=== PATIENT | female | born 1935 | race Caucasian/White ===

== ENCOUNTER 2016-12-15 11:48 | Day surgery (SDC) | payer MEDICARE ==
[2016-12-14 11:30] VITALS: BMI 24.7
[2016-12-15] MEDS ORDERED: ceFAZolin IV 1 gm in Dextrose 1 GM/50 ML BAG IVPB ONE (12:48)
[2016-12-15] MEDS ORDERED: Lidocaine 2% w Epi 1:100,000 Inj IJ ONE (12:48)
--- NOTE | 2016-12-15 12:51 | CP.SDSHP ---
Same Day Surgery H & P - History Proposed Procedure: left shoulder arthroscopic rotator cuff repair, labral repair Pre-Op Diagnosis: Left shoulder rotator cuff tear, labral tear, post herpetic neuralgia - Previous Medical/Surgical History Comments: medical clearance on chart. [employer] patient report reviewed, tramadol rx October 2016. Patient counseled on the risks of addiction, physical or psychological dependence, and overdose associated with opioid drugs and the danger of taking opioid drugs with alcohol and other central nervous system depressants, and cautioned patient on storage and disposal. Previous Surgical History: right shoulder surgery - Allergies Allergies: Allergies aspirin Allergy (Intermediate, Verified 12/14/16 11:42) NAUSEA - Physical Exam General Appearance: in painful distress Vital Signs: Vital Signs 12/15/16 12:33 Pulse Rate 96 H Mental Status: Alert & Oriented x3 - {Optional Preform as Required} Ortho: Other (LUE: +ROM fingers, sensation intact, +radial pulse) - Impression Impression: 81F with left shoulder rotator cuff tear for arthroscopic RC repair and labral repair Pt. Evaluated Today:Candidate for Anesthesia & Procedure: Yes - Date & Time Date: 12/15/16 Time: 12:51 Short Stay Discharge - Short Stay Discharge Admitting Diagnosis/Reason for Visit: SPRAIN OF LEFT ROTATOR CUFF CAPSULE, INITIAL ENCOU Disposition: HOME/ ROUTINE Past Patient History - Past Medical History & Family History Past Medical History?: Yes Past Family History: Reviewed and not pertinent - Past Social History Smoking Status: Never Smoked - NEUROLOGICAL Hx Neurological Disorder: Yes Other/Comment: "NUMBNESS IN TOES BOTTOM OF FEET AND LEFT HAND." - HEMATOLOGICAL/ONCOLOGICAL Hx Blood Disorders: Yes Hx Shingles: Yes (EARLY 2016-RESIDUAL PAIN LEFT ARM) - MUSCULOSKELETAL/RHEUMATOLOGICAL Hx Musculoskeletal Disorders: Yes Hx Arthritis: Yes Hx Rheumatoid Arthritis: Yes Other/Comment: HX: LEFT ROTATOR CUFF BANKART LESION. SON BELIEVES MAY HAVE HAD SAME PROBLEM IN RIGHT SHOULDER YEARS AGO-SURGERY DONE - PSYCHIATRIC Hx Psychophysiologic Disorder: Yes Hx Anxiety: Yes Hx Depression: Yes - SURGICAL HISTORY Hx Surgeries: Yes Hx Musculoskeletal Surgery: Yes (RIGHT SHOULDER) - ANESTHESIA Hx Anesthesia: Yes Hx Anesthesia Reactions: No Hx Malignant Hyperthermia: No Has any member of the family had a problem w/ anesthesia?: No
[2016-12-15] MEDS ORDERED: Lactated Ringer's 1,000 ML IV ONE ×3 (13:22→16:00)
[2016-12-15] MEDS ORDERED: Propofol 10 mg/ml Inj (20 ML) ONE (13:23)
[2016-12-15] MEDS ORDERED: Rocuronium 10 mg/ml (5 ml) ONE (13:30)
[2016-12-15] MEDS ORDERED: Rocuronium 10 mg/ml (10 ml) ONE (14:53)
[2016-12-15] MEDS ORDERED: Morphine 4 MG/ML VIAL ONE (15:28)
[2016-12-15] MEDS ORDERED: Bupivacaine HCl 0.5% PF (10 ml) Inj ONE ×2 (15:38→15:39)
[2016-12-15] MEDS ORDERED: Oxycodone/Acetaminophen 5/325 mg Tab PO PRN (16:20)
[2016-12-15] MEDS: HYDROmorphone 0.5 mg/0.5 ml ISec IVP PRN ×3 (16:21→17:16)
--- NOTE | 2016-12-15 16:21 | PCM.SURG1 ---
Surgeon's Initial Post Op Note - Surgeon's Notes Surgeon: Jayne Hernandes MD Drawbridge Operator: Stanford Andrews PA-C Type of Anesthesia: General Endo Anesthesia Administered By: Dr. Porter Pre-Operative Diagnosis: L shoulder RC tear, labral tear Operative Findings: same Post-Operative Diagnosis: Left shoulder RC tear Operation Performed: Left shoulder arthroscopic rotator cuff repair, subacromial decompression Specimen/Specimens Removed: none Estimated Blood Loss: EBL {In ML}: 3 Blood Products Given: N/A Drains Used: No Drains Post-Op Condition: Fair Date of Surgery/Procedure: 12/15/16 Time of Surgery/Procedure: 16:49
[2016-12-15 17:53] VITALS: RESP 18
[2016-12-15 18:30] VITALS: BP 119/68; PULSE 84; TEMP 97.8; O2SAT 98
--- NOTE | 2016-12-16 03:04 | OP ---
PROCEDURE DATE: 12/15/2016 PREOPERATIVE DIAGNOSES: Left shoulder arthritis and rotator cuff tear. POSTOPERATIVE DIAGNOSES: Left shoulder rotator cuff tear, arthritis, multiple loose bodies and labral tear. PROCEDURES: Left shoulder arthroscopy with arthroscopic rotator cuff repair, subacromial decompression with acromioplasty, debridement of labral tear and removal of loose bodies. SURGEON: Dr. Hernandes. BEHAVIORAL HEALTH RN: Dr. Hernandes was assisted by Edin Andrews, the physician assistant teacher. Ms. Andrews was scrubbed and present throughout the entire case and assisted with the patient positioning, holding the camera while the sutures are being tied and wound closure. TYPE OF ANESTHESIA: General. COMPLICATIONS: None. ESTIMATED BLOOD LOSS: 10 mL. INDICATIONS FOR PROCEDURE: This is an 81-year-old female, who presented with complaints of left shoulder pain. Clinical examination was consistent with significant pain with passive range of motion of the shoulder, a positive Mccracken sign. Some pain with resisted abduction and forward flexion. Radiographic and MRI examination was consistent with left shoulder glenohumeral arthritis as well as full thickness tear of the supraspinatus and labral tear of the glenoid labrum. Treatment options were discussed including total shoulder arthroplasty; however, the patient did not want the surgery and rather wanted to proceed with left shoulder arthroscopy with cuff repair. The risks and benefits were discussed including the possibility of an incomplete repair as well as the possibility of continued pain and loss of function secondary to arthritis. She understood these risks and informed consent was obtained. OPERATIVE PROCEDURE: After the surgical site was finally verified in the preoperative holding area, the patient was taken to the operating room and placed in supine on the operating table. After administration of general anesthesia, the patient received 1 g of Ancef IV. The patient was positioned in the lateral decubitus position with the left shoulder up towards the ceiling. Care was taken to make sure all bony prominences and areas were well padded and protected. An axillary roll was placed in the right axilla and the left upper extremity was prepped and draped in the usual sterile fashion. Left upper extremity positioned in the arthroscopic arm diane with 10-pound weight. The bony landmarks were identified about the left shoulder and our portal sites were injected with 10 mL with 1% lidocaine with epinephrine. Posterior arthroscopy portal was established. The arthroscope was inserted into the glenohumeral joint. The patient has had numerous loose bodies which appeared to be cartilage fragments and through an anterior portal, using a full radius shaver, these loose bodies are removed. The patient was noted to have some areas of full thickness cartilage loss above the glenoid and humeral head. At this point, the anterior labrum was evaluated. The patient was noted to have what look like a normal variant with a sublabral hole at the biceps anchor. There was some fraying of the biceps anchor and labral tissue and this was debrided using a full radius shaver. The inferior labrum appeared to be intact. Posterior labrum also appeared to be intact. Subscapularis was identified and appeared to be intact. The patient was noted to have what look like a full thickness tear of the supraspinatus from the articular site and this was debrided using a full radius shaver. The biceps anchor was noted to be located in the intertubercular groove, there was noted to have some fraying, but was otherwise noted to be intact. The insertion site of the infraspinatus also appeared to be intact. At this point, through the posterior portal, the arthroscope was inserted into the subacromial space and a lateral portal was established. A bursectomy was performed which give excellent visualization of the inner surface of the acromion and the rotator cuff tear. Using the shaver in a misty like fashion, the acromioplasty was performed. At this point, our attention was directed to the rotator cuff tissue. Tissue could be mobilized, but was noted to be severely attenuated and injected and a couple attempts were made to pass suture through the tendon. Finally, this was accomplished using FiberTape and these were loaded. The FiberTape was packed in the mattress type fashion and inserted into knotless Arthrex anchor. This was then impacted into the footprints of the cuff bringing the tendon tissue back down on to its footprint. At this point, picture was noted to still have some residual tearing anteriorly, but due to the poor tissue quality, this was just debrided. At this point, all the instruments were removed. All portal sites were closed using interrupted 2-0 Vicryl suture and 3-0 nylon. A sterile dressing was applied and abduction pillow sling was placed. The patient was awakened from the procedure and taken to recovery room in stable and satisfactory condition. Ugo Hernandes MD [facility] # [id number] MARCELA
== END 2016-12-15 18:15 | disposition home or self-care (01) ==
LOC: C.SDS 11:48
PROVIDERS: ATTEND Orthopaedic Surgery
DX: M75.122 Complete rotator cuff tear or rupture of left shoulder, not specified as traumatic (principal); M19.012 Primary osteoarthritis, left shoulder; M24.012 Loose body in left shoulder; S43.402A Unspecified sprain of left shoulder joint, initial encounter; X58.XXXA Exposure to other specified factors, initial encounter; Y92.9 Unspecified place or not applicable
CPT/HCPCS: 29822; 29826; 29827; J0171; J0690; J1170; J2270; J2704; J3010; J7120